=== PATIENT | female | born 1960 | race Caucasian/White ===

== ENCOUNTER → 2017-05-06 | Outpatient (CLI) | payer OTHER | LOC: BMCIMAGING 11:12 | PROVIDERS: ATTEND Family Medicine | DX: S92.355A Nondisplaced fracture of fifth metatarsal bone, left foot, initial encounter for closed fracture (principal) ==

== ENCOUNTER → 2017-08-14 | Outpatient (CLI) | payer OTHER | LOC: FIMAGING 14:06 | PROVIDERS: ATTEND Physician Assistant | DX: Z12.31 Encounter for screening mammogram for malignant neoplasm of breast (principal) | CPT/HCPCS: G0202 ==

== ENCOUNTER → 2017-08-26 | Outpatient (CLI) | payer OTHER | LOC: FIMAGING 12:41 | PROVIDERS: ATTEND Physician Assistant | DX: R92.8 Other abnormal and inconclusive findings on diagnostic imaging of breast (principal) | CPT/HCPCS: G0206 ==

== ENCOUNTER → 2017-09-02 | Day surgery (SDC) | payer OTHER ==
[~2017-09-02] MED LIST: BUPIVACAINE 0.5% 10 ML SDV ONE; LIDOCAINE 1% 300 MG/30 ML SDV ONE; THROMBIN (BOVINE) 5,000 UNIT VIAL TP ONE
== END | disposition home or self-care (01) ==
LOC: FIMAGING 07:14
PROVIDERS: ATTEND Physician Assistant
PROC: 0HBT3ZX Excision of Right Breast, Percutaneous Approach, Diagnostic (ICD-10-PCS; principal; 2017-09-02)
PROC: BH00ZZZ Plain Radiography of Right Breast (ICD-10-PCS; principal; 2017-09-02)
DX: C50.911 Malignant neoplasm of unspecified site of right female breast (principal); R92.0 Mammographic microcalcification found on diagnostic imaging of breast
CPT/HCPCS: G0206

== ENCOUNTER → 2017-09-21 | Outpatient (CLI) | payer OTHER ==
[~2017-09-21] MED LIST changes: -BUPIVACAINE 0.5% 10 ML SDV ONE; +GADOBUTROL 10 ML VIAL IVP ONE; -LIDOCAINE 1% 300 MG/30 ML SDV ONE; -THROMBIN (BOVINE) 5,000 UNIT VIAL TP ONE
== END ==
LOC: FIMAGING 13:52
PROVIDERS: ATTEND Surgery
DX: D05.01 Lobular carcinoma in situ of right breast (principal)
CPT/HCPCS: 0159T; A9585; C8908

== ENCOUNTER 2017-09-30 06:19 | Day surgery (SDC) | payer OTHER ==
[2017-09-30] MEDS ORDERED: ceFAZolin 2 GM/SWFI 2 GM/20 ML SYR IVP ONE (06:56)
[2017-09-30] MEDS ORDERED: LIDOCAINE 1% 2 ML INJ ONE (07:10)
[2017-09-30 07:11] VITALS: PULSE 112
[2017-09-30] MEDS: ONDANSETRON 4 MG/2 ML VIAL IVP PRN ×2 (07:28→07:43)
[2017-09-30] MEDS ORDERED: PROMETHAZINE HCL 25 MG/ML INJ IVP PRN (07:38)
--- NOTE | 2017-09-30 07:38 | PDHPUP ---
History & Physical Update H&P update statement: This history and physical update is based on an assessment of the patient which was completed after admission or registration (within 24 hours), but prior to the surgery/procedure. H&P update: H&P reviewed & patient examined, no change in patient's condition since H&P completed (nauseated due to stress)
[2017-09-30] MEDS ORDERED: LIDOCAINE 1% 300 MG/30 ML SDV ONE (07:40)
--- NOTE | 2017-09-30 08:54 | PDANEPAE ---
ANE History of Present Illness Breast Cancer ANE Past Medical History - Cardiovascular History Hx Hypertension: No Hx Arrhythmias: No Hx Chest Pain: No Hx Coronary Artery / Peripheral Vascular Disease: No Hx CHF / Valvular Disease: No Hx Palpitations: No - Pulmonary History Hx COPD: No Hx Asthma/Reactive Airway Disease: No Hx Recent Upper Respiratory Infection: No Hx Oxygen in Use at Home: No Hx Sleep Apnea: No Sleep Apnea Screening Result - Last Documented: Negative - Neurologic History Hx Cerebrovascular Accident: No Hx Seizures: No Hx Dementia: No - Endocrine History Hx Diabetes: No - Renal History Hx Renal Disorders: No - Liver History Hx Hepatic Disorders: No - Neurological & Psychiatric Hx Hx Neurological and Psychiatric Disorders: No - Cancer History Hx Cancer: Yes 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[place] [address] anthony - Congenital Disorder History Hx Congenital Disorders: No - GI History Hx Gastrointestinal Disorders: Yes Gastrointestinal History Comment: reflux - Other Health History Other Health History: gets rash from adhesive tape - Chronic Pain History Chronic Pain: Yes (left foot) - Surgical History Prior Surgeries: 1982 breast reduction ANE Review of Systems Review of Systems: - Exercise capacity METS (RN): 4 METS ANE Patient History - Allergies Allergies/Adverse Reactions: adhesive tape Allergy (Verified 09/29/17 12:39) Rash amoxicillin Allergy (Verified 09/29/17 12:28) Rash Penicillins Allergy (Verified 09/29/17 12:28) 25 yrs ago she had a rash reaction with amoxicillin - Home Medications Home Medications: Multi-Vitamin Daily 09/29/17 [Last Taken 09/29/17 12:00] Prevacid 09/29/17 [Last Taken 09/29/17 18:00] - NPO status NPO Since - Liquids (Date): 09/29/17 NPO Since - Liquids (Time): 19:00 NPO Since - Solids (Date): 09/29/17 NPO Since - Solids (Time): 19:00 - Smoking Hx Smoking Status: Never smoked - Family Anes Hx Family Hx Anesthesia Complications: none ANE Labs/Vital Signs - Vital Signs Blood Pressure: 174/111 Heart Rate: 112 Respiratory Rate: 20 O2 Sat (%): 98 Height: 165 cm Weight: 57 kg ANE Physical Exam - ASA Status ASA Status: II (for LMA general)
[2017-09-30] MEDS ORDERED: BUPIVACAINE 0.5% 30 ML SDV ONE (09:00)
[2017-09-30] MEDS ORDERED: MIDAZOLAM 2 MG/2 ML VIAL ONE ×2 (09:01→09:26)
[2017-09-30] MEDS ORDERED: fentaNYL 100 MCG/2 ML INJ ONE (09:01)
[2017-09-30] MEDS ORDERED: PROPOFOL/EMULSION 500 MG/50 ML BOTTLE IV ONE (09:01)
[2017-09-30] MEDS ORDERED: PROMETHAZINE HCL 25 MG/ML INJ ONE (09:13)
[2017-09-30] MEDS ORDERED: RANITIDINE 50 MG/2 ML VIAL ONE (10:19)
[2017-09-30] MEDS ORDERED: DEXAMETHASONE 4 MG/ML VIAL ONE (10:19)
[2017-09-30] MEDS ORDERED: METOCLOPRAMIDE 10 MG/2 ML VIAL ONE (10:19)
--- NOTE | 2017-09-30 10:19 | POSTOPPROG ---
Post Op Note Date of Operation: 09/30/17 Surgeon: Loly Wen Internet Marketing Executive: boo Anesthesiologist: isela Anesthesia: GET(General Endotracheal) Pre-op Diagnosis: R DCIS Post-op Diagnosis: same Indication: 57 yo with R breast DCIS Procedure: R needle loc lumpectomy Inf/Abcess present in the surg proc area at time of surgery?: No Specimen(s): lumpectomy and margins
[2017-09-30] MEDS ORDERED: NALOXONE HCL 0.4 MG/ML INJ IVP PRN (10:28)
[2017-09-30] MEDS ORDERED: PROPOFOL 200 MG/20 ML VIAL ONE (10:37)
--- NOTE | 2017-09-30 11:05 | POSTANESTH ---
Post Anesthetic Evaluation Respiratory Status: Normal, Stable Level of Consciousness/Mental Status: Mildly Sleepy, Arousable Pain Control: Adequate, Prn Tx Ordered Nausea/Vomiting Control: Adequate, Prn Tx Ordered Complications Possibly Related to Anesthesia: None Noted
[2017-09-30 11:11] VITALS: TEMP 97.5
[2017-09-30 11:45] VITALS: RESP 12
[2017-09-30 12:14] VITALS: BP 130/85; O2SAT 97
--- NOTE | 2017-10-02 16:21 | GOP ---
[f rep st] OPERATIVE REPORT DATE OF OPERATION: 09/30/2017 SURGEON: Loly Wen MD [employer] SUPERVISOR: Denise eWbb, GERALD ANESTHESIA: Jose Aranda MD. PREOPERATIVE DIAGNOSIS: Right breast ductal carcinoma in situ. POSTOPERATIVE DIAGNOSIS: Right breast ductal carcinoma in situ. PROCEDURE PERFORMED: Right needle localized lumpectomy FINDINGS: The initial lumpectomy specimen did not contain the clip or the calcifications. It was found in the lateral specimen. Additional tissue was obtained on the new lateral margin. EBL: 10 cc SPECIMENS: Lumpectomy plus additional margins. INDICATIONS: Asia Denney is a 57-year-old woman with right breast ductal carcinoma in situ. DESCRIPTION OF PROCEDURE: Asia was brought into the operating room, placed supine on the table. General anesthesia was administered. Her right breast was prepped and draped in the usual sterile fashion. I infiltrated the area with 0.5% Marcaine prior to making incisions. I made an incision along her inframammary fold at the site of her previous surgery I created a superior skin flap and brought the wire into the field. I created a lumpectomy with the wire in the central portion of the lumpectomy. It was marked green anterior, red superior, yellow medial, blue inferior, orange lateral, black posterior. I submitted this to Radiology. The clip was not in the specimen. I took an additional superior margin inked red, medial margin inked yellow, inferior margin inked blue, lateral margin inked orange, posterior margin inked black. These were submitted to Radiology and the lateral margin contained the calcifications and the clip. Elected to take an additional lateral margin inked green. This was submitted to Pathology. Three clips were placed in the lumpectomy cavity. Hemostasis was achieved. The deep layer closed with 3-0 Vicryl. Skin closed with 3-0 Vicryl followed by 4-0 Monocryl. Steri-Strips and a sterile dressing applied. She tolerated the procedure well. /[id number]/MODL MTDD
== END 2017-09-30 12:22 | disposition home or self-care (01) ==
LOC: FSGY 06:19 → EEVIPCON 09:30 → FSGY 12:22
PROVIDERS: ATTEND Surgery
PROC: 0HBT0ZZ Excision of Right Breast, Open Approach (ICD-10-PCS; principal; 2017-09-30 09:30)
DX: D05.01 Lobular carcinoma in situ of right breast (principal)
CPT/HCPCS: J0690; J1100; J2250; J2405; J2550; J2704; J2765; J2780; J3010

== ENCOUNTER → 2018-05-18 | Outpatient (CLI) | payer OTHER | LOC: BMCIMAGING 13:18 | PROVIDERS: ATTEND Family Medicine | DX: S42.391A Other fracture of shaft of right humerus, initial encounter for closed fracture (principal) ==

== ENCOUNTER → 2018-08-10 | Outpatient (CLI) | payer MEDICAID | LOC: BMCIMAGING 10:10 | PROVIDERS: ATTEND Internal Medicine Hematology & Oncology | DX: Z08 Encounter for follow-up examination after completed treatment for malignant neoplasm (principal); D05.11 Intraductal carcinoma in situ of right breast ==

== ENCOUNTER → 2018-08-31 | Outpatient (CLI) | payer MEDICAID | LOC: BMCIMAGING 09:41 | PROVIDERS: ATTEND Orthopaedic Surgery Hand Surgery | DX: S42.391K Other fracture of shaft of right humerus, subsequent encounter for fracture with nonunion (principal) ==

== ENCOUNTER → 2018-09-22 | Outpatient (CLI) | payer MEDICAID | LOC: BMCIMAGING 10:21 | PROVIDERS: ATTEND Internal Medicine Hematology & Oncology | DX: Z13.820 Encounter for screening for osteoporosis (principal); M85.89 Other specified disorders of bone density and structure, multiple sites ==